=== PATIENT | female | born 1945 | race Caucasian/White ===

== ENCOUNTER 2018-05-09 07:23 | Emergency (ER) | payer MEDICARE, BC ==
[2018-05-09] MEDS ORDERED: Sodium Chloride 0.9% 10 ML Syringe FLUSH PRN (07:37)
[2018-05-09] MEDS ORDERED: HYDROmorphone 0.5 MG/0.5 ML SYRINGE IVPUSH ONE (07:37)
[2018-05-09] MEDS ORDERED: methylPREDNISolone Sodium Succinate 125 MG/2 ML SDV IVPUSH ONE (08:18)
[2018-05-09] MEDS ORDERED: Ketorolac 30 MG/ML SDV IVPUSH SCH (08:30)
--- NOTE | 2018-05-09 08:57 | EDM.PDOC ---
ED HPI GENERAL MEDICAL PROBLEM - General Chief Complaint: Back Pain or Injury Stated Complaint: [facility] Time Seen by Provider: 05/09/18 07:37 Source of Information: Reports: Patient, RN Notes Reviewed - History of Present Illness INITIAL COMMENTS - FREE TEXT/NARRATIVE: 9-year-old female comes in by ambulance with severe left low back pain. States she had onset of this pain about a week ago and was started on tramadol and Flexeril about 5 days ago. However the pain is worsened the last several days and this morning was severe to the point of difficulty getting out of bed. Not taken any of her pain medication at this morning. The pain is primarily in her left low back with some radiation down into the left leg worse with any type of motion. She has had this occasionally in the past many years ago but not this severe. She does not remember any particular injury. No voiding symptoms. No fever or chills. Left Back Pain Score (Numeric/FACES): 10 - Related Data Allergies Allergy/AdvReac Type Severity Reaction Status Date / Time Iodinated Contrast- Oral and Allergy Hives Verified 05/09/18 07:26 IV Dye Home Meds: Home Meds Acetaminophen/HYDROcodone [[place] 325-5 MG] 1 tab PO Q4H PRN #20 tablet 05/09/18 [Rx] Cyclobenzaprine [Flexeril] 5 mg PO TID PRN 05/09/18 [History] Naproxen [Naprosyn] 500 mg PO Q12HR #14 tab 05/09/18 [Rx] OXcarbazepine [Oxcarbazepine] 450 mg PO BID 05/09/18 [History] hydroCHLOROthiazide [Hydrochlorothiazide] 12.5 mg PO DAILY 05/09/18 [History] predniSONE [Prednisone] 40 mg PO DAILY 05/09/18 [History] traMADol [Ultram] 50 mg PO Q4H PRN 05/09/18 [History] Past Medical History Cardiovascular History: Reports: Hypertension Social & Family History - Tobacco Use Smoking Status *Q: Never Smoker ED ROS GENERAL - Review of Systems Review Of Systems: See Below Constitutional: Denies: Fever, Chills, Diaphoresis HEENT: Denies: Throat Pain Respiratory: Denies: Shortness of Breath Cardiovascular: Denies: Chest Pain GI/Abdominal: Denies: Abdominal Pain, Nausea, Vomiting Musculoskeletal: Reports: Back Pain, Leg Pain Skin: Reports: No Symptoms (Left-sided intermittent) Neurological: Reports: Numbness (Occasional numbness toes of left foot), Difficulty Walking (Secondary to pain). Denies: Weakness ED EXAM,LOWER BACK PAIN/INJURY - Physical Exam Exam: See Below General Appearance: Alert, Moderate Distress Eye Exam: Bilateral Eye: PERRL Throat/Mouth: Normal Inspection Head: Atraumatic Neck: Supple, Full Range of Motion Respiratory/Chest: No Respiratory Distress, Lungs Clear, Normal Breath Sounds Cardiovascular: Regular Rate, Rhythm GI/Abdominal: Soft, Non-Tender. No: Guarding, Rebound Back Exam: Paraspinal Tenderness. No: CVA Tenderness (L), CVA Tenderness (R), Vertebral Tenderness (Mild tenderness left low back) Extremities: Normal Inspection, Normal Range of Motion. No: Pedal Edema, Leg Pain, Increased Warmth, Redness Neurological: Alert, No Motor/Sensory Deficits, Oriented x 3 Skin Exam: Warm, Dry, Normal Color Course - Vital Signs Last Recorded V/S: Last Vital Signs Temp 97.7 F 05/09/18 07:27 Pulse 73 05/09/18 07:27 Resp 16 05/09/18 07:27 BP 167/68 H 05/09/18 07:27 Pulse Ox 97 05/09/18 07:27 - Orders/Labs/Meds Orders: Active Orders 24 hr Category Date Time Status Insert Urinary Catheter [OM.PC] Stat Care 05/09/18 08:14 Ordered Peripheral IV Care [RC] . DIRECTED Care 05/09/18 07:38 Active Urinary Catheter Assessment [RC] ASDIRECTED Care 05/09/18 08:16 Active Peripheral IV Insertion Adult [OM.PC] Stat Oth 05/09/18 07:37 Ordered Labs: Laboratory Tests 05/09/18 Range/Units 07:42 Urine Color Yellow (Yellow) Urine Appearance Clear (Clear) Urine pH 7.0 (5.0-8.0) Ur Specific [place] 1.020 (1.005-1.030) Urine Protein Negative (Negative) Urine Glucose (UA) Negative (Negative) Urine Ketones Trace H (Negative) Urine Occult Blood Negative (Negative) Urine Nitrite Negative (Negative) Urine Bilirubin Negative (Negative) Urine Urobilinogen 1.0 (0.2-1.0) Ur Leukocyte Esterase Negative (Negative) Urine RBC 0-5 (0-5) /hpf Urine WBC 0-5 (0-5) /hpf Ur Epithelial Cells 0-5 (0-5) /hpf Urine Bacteria Few (FEW) /hpf Urine Mucus Not seen (FEW) /hpf Meds: Medications Discontinued Medications Generic Name Dose Route Start Last Admin Trade Name Freq PRN Reason Stop Dose Admin Hydromorphone HCl 1 mg 05/09/18 07:37 05/09/18 08:02 Dilaudid IVPUSH 05/09/18 07:38 1 mg ONETIME ONE Administration Ketorolac Tromethamine 30 mg 05/09/18 08:30 05/09/18 08:26 Toradol IVPUSH 30 mg ONETIME ZARINA Administration Methylprednisolone Sodium Succinate 125 mg 05/09/18 08:18 05/09/18 08:26 Solu-Medrol IVPUSH 05/09/18 08:19 125 mg ONETIME ONE Administration Sodium Chloride 10 ml 05/09/18 07:37 05/09/18 10:38 Saline Flush FLUSH 10 ml ASDIRECTED PRN Administration Keep Vein Open - Re-Assessments/Exams Free Text/Narrative Re-Assessment/Exam: 05/09/18 12:16. Patient had good relief of her discomfort after Dilaudid, Toradol and Solu-Medrol IV. Check to see if MRI was available for this morning but it was not. Discharge instructions as documented. Departure - Departure Time of Disposition: 09:40 Disposition: Home, Self-Care 01 Condition: Fair Clinical Impression: Low back pain with sciatica Qualifiers: Chronicity: acute Back pain laterality: left Sciatica laterality: sciatica of left side Qualified Code(s): M54.42 - Lumbago with sciatica, left side - Discharge Information Prescriptions: Naproxen [Naprosyn] 500 mg PO Q12HR #14 tab Acetaminophen/HYDROcodone [Poyntelle 325-5 MG] 1 tab PO Q4H PRN #20 tablet PRN Reason: Pain Instructions: Back Pain, Adult Referrals: PCP,Not In Area [Primary Care Provider] - Forms: ED Department Discharge Additional Instructions: Continue to rest back, no heavy lifting, you may alternate ice and heat as needed, Naprosyn 500 mg twice daily, continue prednisone 40 mg every morning, stop the Flexeril muscle relaxant, stop the tramadol for now, hydrocodone one tab every 4-6 hours as needed for severe pain, follow-up clinic Sunday as planned. MRI low back to be scheduled prior to discharge. Begin physical therapy as soon as possible next week. - My Orders Last 24 Hours: My Active Orders 05/09/18 07:37 Peripheral IV Insertion Adult [OM.PC] Stat 05/09/18 07:38 Peripheral IV Care [RC] . DIRECTED 05/09/18 08:14 Insert Urinary Catheter [OM.PC] Stat 05/09/18 08:16 Urinary Catheter Assessment [RC] ASDIRECTED - Assessment/Plan Last 24 Hours: My Active Orders 05/09/18 07:37 Peripheral IV Insertion Adult [OM.PC] Stat 05/09/18 07:38 Peripheral IV Care [RC] . DIRECTED 05/09/18 08:14 Insert Urinary Catheter [OM.PC] Stat 05/09/18 08:16 Urinary Catheter Assessment [RC] ASDIRECTED
== END 2018-05-09 10:34 | disposition home or self-care (01) ==
LOC: JD.ED 07:23
DX: M54.42 Lumbago with sciatica, left side (principal); I10 Essential (primary) hypertension; Z91.040 Latex allergy status; Z79.899 Other long term (current) drug therapy
CPT/HCPCS: 81001; 96374; 96375; 99284; J1170; J1885; J2930; J7050

== ENCOUNTER 2018-06-11 23:54 | Emergency (ER) | payer MEDICARE, BC ==
[2018-06-12] MEDS ORDERED: Sodium Chloride 0.9% 10 ML Syringe FLUSH PRN (00:13)
[2018-06-12] MEDS ORDERED: Ondansetron 4 MG/2 ML SDV IVPUSH ONE (00:13)
[2018-06-12] MEDS ORDERED: HYDROmorphone 0.5 MG/0.5 ML SYRINGE IVPUSH ONE (00:14)
[2018-06-12] MEDS ORDERED: Sodium Chloride 0.9% 1,000 ML IV SCH (00:15)
--- NOTE | 2018-06-12 01:11 | EDM.PDOC ---
ED HPI GENERAL MEDICAL PROBLEM - General Chief Complaint: Cardiovascular Problem Stated Complaint: HEART BEATING FAST Time Seen by Provider: 06/12/18 00:00 Source of Information: Reports: Patient History Limitations: Reports: No Limitations - History of Present Illness INITIAL COMMENTS - FREE TEXT/NARRATIVE: The patient presents with palpitations. She felt this before she went to bed. She woke up prior to arrival and had more palpitations. She denies chest pain except for slight discomfort. She maybe a little short of breath. She has no fever, chills, cough, or abdominal pain. She does have some nausea. She has been dealing with a bad back. She has a compression fracture at L1 and L4 and a bulging disc. She has been going to physical therapy and she had a session today that wore her out and she went to bed when she got home tonight. She has nausea and tried to vomit when I examined her. She as no dysuria but she has been going more often because she is drinking more water. Onset: Gradual Duration: Hour(s): Severity: Moderate Improves with: Reports: None Worsens with: Reports: None Associated Symptoms: Reports: Nausea/Vomiting, Shortness of Breath. Denies: Chest Pain, Cough, Fever/Chills, Headaches - Related Data Allergies Allergy/AdvReac Type Severity Reaction Status Date / Time Iodinated Contrast- Oral and Allergy Hives Verified 06/11/18 23:59 IV Dye Home Meds: Home Meds OXcarbazepine [Oxcarbazepine] 450 mg PO BID 05/09/18 [History] Potassium Chloride 10 meq PO DAILY #30 tablet.er 06/12/18 [Rx] Past Medical History HEENT History: Reports: Impaired Vision Other HEENT History: Wears reading glasses Cardiovascular History: Reports: Hypertension Musculoskeletal History: Reports: Other (See Below) Other Musculoskeletal History: Sciatica - Past Surgical History Other Musculoskeletal Surgeries/Procedures:: Ganglion cyst Social & Family History - Tobacco Use Smoking Status *Q: Never Smoker - Recreational Drug Use Recreational Drug Use: No ED ROS GENERAL - Review of Systems Review Of Systems: See Below Constitutional: Reports: No Symptoms HEENT: Reports: No Symptoms Respiratory: Reports: Shortness of Breath Cardiovascular: Reports: Palpitations. Denies: Chest Pain Endocrine: Reports: No Symptoms GI/Abdominal: Reports: Nausea. Denies: Abdominal Pain, Vomiting : Reports: No Symptoms Musculoskeletal: Reports: No Symptoms ED EXAM, GENERAL - Physical Exam Exam: See Below Exam Limited By: No Limitations General Appearance: Alert, No Apparent Distress Ears: Normal External Exam Nose: Normal Inspection Head: Atraumatic, Normocephalic Neck: Normal Inspection Respiratory/Chest: No Respiratory Distress, Lungs Clear, Normal Breath Sounds Cardiovascular: Regular Rate, Rhythm, No Edema, No Murmur GI/Abdominal: Soft, Non-Tender, No Organomegaly, No Mass Back Exam: Other (Pain upon palpation to the low back) Extremities: Normal Inspection Neurological: Alert, Oriented, No Motor/Sensory Deficits EKG INTERPRETATION EKG Date: 06/12/18 Time: 23:59 Rhythm: NSR Rate (Beats/Min): 76 [place]: Normal P-Wave: Present QRS: Normal ST-T: Normal QT: Normal Course - Vital Signs Last Recorded V/S: Last Vital Signs Temp 96.7 F 06/11/18 23:59 Pulse 74 06/11/18 23:59 Resp 17 06/11/18 23:59 BP 138/73 06/11/18 23:59 Pulse Ox 100 06/11/18 23:59 - Orders/Labs/Meds Orders: Active Orders 24 hr Category Date Time Status Cardiac Monitoring [RC] . DIRECTED Care 06/12/18 00:14 Active EKG Documentation Completion [RC] STAT Care 06/12/18 00:14 Active Peripheral IV Care [RC] . DIRECTED Care 06/12/18 00:14 Active Chest 1V Frontal [CR] Stat Exams 06/12/18 00:14 Taken UA W/MICROSCOPIC [URIN] Stat Lab 06/12/18 00:13 Stop Req Potassium Chloride [Klor-Con 10] Med 06/12/18 02:11 Once 10 meq PO ONETIME ONE Sodium Chloride 0.9% [Normal Saline] 1,000 ml Med 06/12/18 00:15 Active IV ASDIRECTED Sodium Chloride 0.9% [Saline Flush] Med 06/12/18 00:13 Active 10 ml FLUSH ASDIRECTED PRN ED Antiemetic Medication Reflex [OM.PC] Stat Oth 06/12/18 00:14 Ordered Peripheral IV Insertion Adult [OM.PC] Stat Oth 06/12/18 00:13 Ordered Medication Orders Sodium Chloride (Normal Saline) 1,000 mls @ 125 mls/hr IV ASDIRECTED ZARINA Last Admin: 06/12/18 00:26 Dose: 125 mls/hr Sodium Chloride (Saline Flush) 10 ml FLUSH ASDIRECTED PRN PRN Reason: Keep Vein Open Last Admin: 06/12/18 00:26 Dose: 10 ml Labs: Laboratory Tests 06/11/18 06/11/18 06/11/18 Range/Units 23:48 23:59 23:59 WBC 11.23 H (3.98-10.04) K/mm3 RBC 4.46 (3.98-5.22) M/mm3 Hgb 15.1 (11.2-15.7) gm/L Hct 42.3 (34.1-44.9) % MCV 94.8 (79.4-94.8) fl MCH 33.9 H (25.6-32.2) pg MCHC 35.7 H (32.2-35.5) g/dl RDW Std Deviation 43.7 (36.4-46.3) fL Plt Count 386 H (182-369) K/mm3 MPV 8.5 L (9.4-12.3) fl Neut % (Auto) 50.4 (34.0-71.1) % Lymph % (Auto) 37.5 (19.3-51.7) % [place] % (Auto) 9.5 (4.7-12.5) % Eos % (Auto) 1.8 (0.7-5.8) Baso % (Auto) 0.4 (0.1-1.2) % Neut # (Auto) 5.66 (1.56-6.13) K/mm3 Lymph # (Auto) 4.21 H (1.18-3.74) K/mm3 [place] # (Auto) 1.07 H (0.24-0.36) K/mm3 Eos # (Auto) 0.20 (0.04-0.36) K/mm3 Baso # (Auto) 0.04 (0.01-0.08) K/mm3 D-Dimer, Quantitative 0.43 (0.19-0.50) mg/L Sodium (136-145) mEq/L Potassium (3.5-5.1) mEq/L Chloride (98-107) mEq/L Carbon Dioxide (21-32) mEq/L Anion Gap (5-15) BUN (7-18) mg/dL Creatinine (0.55-1.02) mg/dL Est Cr Clr Drug Dosing mL/min Estimated GFR (MDRD) (>60) mL/min BUN/Creatinine Ratio (14-18) Glucose (80-115) mg/dL Calcium (8.5-10.1) mg/dL Total Bilirubin (0.2-1.0) mg/dL AST (15-37) U/L ALT (14-59) U/L Alkaline Phosphatase (46-116) U/L Troponin I (0.00-0.056) ng/mL Total Protein (6.4-8.2) g/dl Albumin (3.4-5.0) g/dl Globulin gm/dL Albumin/Globulin Ratio (1-2) TSH 3rd Generation 1.837 (0.358-3.74) uIU/mL 06/11/18 Range/Units 23:59 WBC (3.98-10.04) K/mm3 RBC (3.98-5.22) M/mm3 Hgb (11.2-15.7) gm/L Hct (34.1-44.9) % MCV (79.4-94.8) fl MCH (25.6-32.2) pg MCHC (32.2-35.5) g/dl RDW Std Deviation (36.4-46.3) fL Plt Count (182-369) K/mm3 MPV (9.4-12.3) fl Neut % (Auto) (34.0-71.1) % Lymph % (Auto) (19.3-51.7) % [place] % (Auto) (4.7-12.5) % Eos % (Auto) (0.7-5.8) Baso % (Auto) (0.1-1.2) % Neut # (Auto) (1.56-6.13) K/mm3 Lymph # (Auto) (1.18-3.74) K/mm3 [place] # (Auto) (0.24-0.36) K/mm3 Eos # (Auto) (0.04-0.36) K/mm3 Baso # (Auto) (0.01-0.08) K/mm3 D-Dimer, Quantitative (0.19-0.50) mg/L Sodium 130 L (136-145) mEq/L Potassium 2.8 L (3.5-5.1) mEq/L Chloride 91 L (98-107) mEq/L Carbon Dioxide 23 (21-32) mEq/L Anion Gap 18.8 H (5-15) BUN 4 L (7-18) mg/dL Creatinine 0.7 (0.55-1.02) mg/dL Est Cr Clr Drug Dosing 61.86 mL/min Estimated GFR (MDRD) > 60 (>60) mL/min BUN/Creatinine Ratio 5.7 L (14-18) Glucose 103 (80-115) mg/dL Calcium 8.8 (8.5-10.1) mg/dL Total Bilirubin 0.7 (0.2-1.0) mg/dL AST 21 (15-37) U/L ALT 23 (14-59) U/L Alkaline Phosphatase 122 H (46-116) U/L Troponin I < 0.017 (0.00-0.056) ng/mL Total Protein 7.6 (6.4-8.2) g/dl Albumin 4.2 (3.4-5.0) g/dl Globulin 3.4 gm/dL Albumin/Globulin Ratio 1.2 (1-2) TSH 3rd Generation (0.358-3.74) uIU/mL Meds: Medications Generic Name Dose Route Start Last Admin Trade Name Freq PRN Reason Stop Dose Admin Sodium Chloride 1,000 mls @ 125 mls/hr 06/12/18 00:15 06/12/18 00:26 Normal Saline IV 125 mls/hr ASDIRECTED ZARINA Administration Sodium Chloride 10 ml 06/12/18 00:13 06/12/18 00:26 Saline Flush FLUSH 10 ml ASDIRECTED PRN Administration Keep Vein Open Discontinued Medications Generic Name Dose Route Start Last Admin Trade Name Freq PRN Reason Stop Dose Admin Hydromorphone HCl 0.5 mg 06/12/18 00:14 06/12/18 00:28 Dilaudid IVPUSH 06/12/18 00:15 0.5 mg ONETIME ONE Administration Ondansetron HCl 4 mg 06/12/18 00:13 06/12/18 00:26 Zofran IVPUSH 06/12/18 00:14 4 mg ONETIME ONE Administration - Re-Assessments/Exams Free Text/Narrative Re-Assessment/Exam: 06/12/18 01:16 I ordered an IV NS at 125mL/hr, zofran 4mg IV, dilaudid 0.5mg IV, labs, UA, CXR and an EKG. Her EKG shows a NSR with no acute changes. Her CXR looks good. Her WBC was slightly elevated at 11.23. Her D-dimer is normal. Her K was low at 2.8 and her Na was low at 130. Her anion gap was elevated at 18.8. Her alk phos was elevated at 122. Her troponin was negative. 06/12/18 02:12 She feels much better now. I will give her some potassium here and a prescription for more. Departure - Departure Time of Disposition: 02:20 Disposition: Home, Self-Care 01 Condition: Good Clinical Impression: Hypokalemia, Hyponatremia, Atypical chest pain, Nausea Low back pain with sciatica Qualifiers: Chronicity: acute Back pain laterality: left Sciatica laterality: sciatica of left side Qualified Code(s): M54.42 - Lumbago with sciatica, left side Prescriptions: Potassium Chloride 10 meq PO DAILY #30 tablet.er Referrals: Alexia Thompson [employer] [Primary Care Provider] - 1 Week Forms: ED Department Discharge Additional Instructions: Take the potassium daily. Keep taking your other meds. Your sodium is a little low. You can add some salt to your diet for the next week. Follow up with Miguel in 1 week to have the levels checked. Please return if you are worse. - My Orders Last 24 Hours: My Active Orders 06/12/18 00:13 UA W/MICROSCOPIC [URIN] Stat Sodium Chloride 0.9% [Saline Flush] 10 ml FLUSH ASDIRECTED PRN Peripheral IV Insertion Adult [OM.PC] Stat 06/12/18 00:14 Cardiac Monitoring [RC] . DIRECTED EKG Documentation Completion [RC] STAT Peripheral IV Care [RC] . DIRECTED Chest 1V Frontal [CR] Stat ED Antiemetic Medication Reflex [OM.PC] Stat 06/12/18 00:15 Sodium Chloride 0.9% [Normal Saline] 1,000 ml IV ASDIRECTED 06/12/18 02:11 Potassium Chloride [Klor-Con 10] 10 meq PO ONETIME ONE - Assessment/Plan Last 24 Hours: My Active Orders 06/12/18 00:13 UA W/MICROSCOPIC [URIN] Stat Sodium Chloride 0.9% [Saline Flush] 10 ml FLUSH ASDIRECTED PRN Peripheral IV Insertion Adult [OM.PC] Stat 06/12/18 00:14 Cardiac Monitoring [RC] . DIRECTED EKG Documentation Completion [RC] STAT Peripheral IV Care [RC] . DIRECTED Chest 1V Frontal [CR] Stat ED Antiemetic Medication Reflex [OM.PC] Stat 06/12/18 00:15 Sodium Chloride 0.9% [Normal Saline] 1,000 ml IV ASDIRECTED 06/12/18 02:11 Potassium Chloride [Klor-Con 10] 10 meq PO ONETIME ONE
[2018-06-12] MEDS ORDERED: Potassium Chloride 10 MEQ Tab.ER PO ONE (02:11)
--- NOTE | 2018-06-12 10:28 | CR ---
Chest: Frontal view of the chest was obtained. Comparison: Previous chest x-ray is not available. Heart is slightly enlarged. Tortuous thoracic aorta is seen. Lungs are clear with no acute parenchymal change. Bony structures are osteopenic. Impression: 1. Incidental findings. Nothing acute is seen on frontal chest x-ray. Diagnostic code #2
== END 2018-06-12 02:26 | disposition home or self-care (01) ==
LOC: JD.ED 23:54
DX: R07.89 Other chest pain (principal); M54.42 Lumbago with sciatica, left side; E87.6 Hypokalemia; E87.1 Hypo-osmolality and hyponatremia; R11.10 Vomiting, unspecified; I10 Essential (primary) hypertension; Z91.041 Radiographic dye allergy status
CPT/HCPCS: 36415; 71045; 80053; 84443; 84484; 85025; 85379; 93005; 96361; 96374; 96375; 99284; A9270; J1170; J2405; J7040; J7050; 93010

== ENCOUNTER 2024-11-07 01:58 | Emergency (ER) | payer MEDICARE, BC ==
[2024-11-07] MEDS ORDERED: Sodium Chloride 0.9% 10 ML Syringe FLUSH PRN (02:37)
[2024-11-07 02:59] LABS: BASOPHILS ABSOLUTE AUTO 0.1 K/mm3 (0.0-0.2); BASOPHILS PERCENT AUTO 0.4 % (0.0-1.0); EOSINOPHILS PERCENT AUTO 0.3 % (0.0-6.0); HEMATOCRIT 37.1 % (37.0-47.0); HEMOGLOBIN 13.1 gm/dl (12.0-16.0); IMMATURE GRAN ABSOLUTE AUTO 0.05 K/mm3 (0.00-0.05); IMMATURE GRAN PERCENT AUTO 0.4 % (0.0-0.4); LYMPHOCYTES ABSOLUTE AUTO 1.6 K/mm3 (1.0-4.8); LYMPHOCYTES PERCENT AUTO 12.5 % (24.0-44.0); MEAN CORPUSCULAR HGB CONC 35.3 g/dl (32.0-36.0); MEAN CORPUSCULAR VOLUME 96.4 fl (83.0-99.0); MEAN PLATELET VOLUME 8.6 fl (9.4-12.3); MONOCYTES ABSOLUTE AUTO 0.6 K/mm3 (0.0-0.8); MONOCYTES PERCENT AUTO 4.8 % (0.0-8.0); NEUTROPHILS ABSOLUTE AUTO 10.2 K/mm3 (1.8-7.7); NEUTROPHILS PERCENT AUTO 81.6 % (41.0-71.0); PLATELET COUNT,PLT 306 K/mm3 (150-400); RED BLOOD CELL COUNT 3.85 M/mm3 (4.10-5.30); WHITE BLOOD CELL COUNT,WBC 12.44 K/mm3 (3.9-11.3)
[2024-11-07] MEDS: fentaNYL 100 MCG/2 ML SDV IVPUSH ONE (02:59)
[2024-11-07] MEDS: Lactated Ringers 500 ML IV ONE (02:59)
[2024-11-07 03:11] LABS: A/G RATIO 1.2 (1-2); ALBUMIN 3.9 g/dl (3.4-5.0); ANION GAP 15.7 (5-15); BILIRUBIN TOTAL 0.5 mg/dL (0.2-1.0); BUN/CREATININE RATIO 22.2 (14-18); CALCIUM 9.1 mg/dL (8.5-10.1); CREATININE 0.9 mg/dL (0.55-1.02); EST CRCL DRUG DOSING (CG) 41.4 mL/min; MAGNESIUM 1.7 mg/dL (1.8-2.4); POTASSIUM,K 3.7 mEq/L (3.5-5.1); PROTEIN TOTAL,TP 7.2 g/dl (6.4-8.2)
[2024-11-07 04:58] LABS: APPEARANCE,URINE CLEAR (Clear); BILIRUBIN,URINE NEGATIVE (Negative); COLOR,URINE YELLOW (Yellow); GLUCOSE,URINE NEGATIVE (Negative); KETONES,URINE 1+ (Negative); LEUKOCYTE ESTERASE,URINE NEGATIVE (Negative); NITRITE,URINE NEGATIVE (Negative); OCCULT BLOOD,URINE 2+ (Negative); PH,URINE 7.5 (5.0-8.0); PROTEIN,URINE NEGATIVE (Negative); UROBILINOGEN,URINE 0.2 (0.2-1.0)
[2024-11-07 05:25] LABS: EPITHELIAL CELLS,URINE 0-5 /hpf (0-5); WBC,URINE 0-5 /hpf (0-5)
[2024-11-07 05:26] LABS: BACTERIA,URINE FEW /hpf (FEW); MUCUS,URINE NOT SEEN /hpf (FEW)
== END 2024-11-07 06:08 | disposition home or self-care (01) ==
LOC: JD.ED 01:58
DX: R10.12 Left upper quadrant pain (principal); R10.32 Left lower quadrant pain; R93.5 Abnormal findings on diagnostic imaging of other abdominal regions, including retroperitoneum; I10 Essential (primary) hypertension; Z79.899 Other long term (current) drug therapy; Z91.030 Bee allergy status; Z91.041 Radiographic dye allergy status; Z88.8 Allergy status to other drugs, medicaments and biological substances
CPT/HCPCS: 36415; 74176; 74176-26; 80053; 81001; 83690; 83735; 85025; 93005; 96361; 96374; 99284-25; J3010; J7120

== ENCOUNTER 2025-05-03 17:06 | Emergency (ER) | payer MEDICARE, BC | END 2025-05-03 18:12 | disposition home or self-care (01) | LOC: JD.ED 17:06 | DX: S00.83XA Contusion of other part of head, initial encounter (principal); S00.03XA Contusion of scalp, initial encounter; I10 Essential (primary) hypertension; Z91.030 Bee allergy status; Z91.041 Radiographic dye allergy status; Z88.8 Allergy status to other drugs, medicaments and biological substances; Z79.899 Other long term (current) drug therapy; W01.198A Fall on same level from slipping, tripping and stumbling with subsequent striking against other object, initial encounter; Y93.89 Activity, other specified | CPT/HCPCS: 70450; 70450-26; 70486; 70486-26; 99283 ==